=== PATIENT | male | born 1980 | race Caucasian/White ===

== ENCOUNTER 2017-06-24 15:51 | Emergency (ER) | payer MEDICAID ==
[~2017-06-24 15:51] MED LIST: HYDROmorphone 1 MG/ML Syringe ONE; Ondansetron 4 MG/2 ML SDV ONE
[2017-06-24] MEDS ORDERED: Ondansetron 4 MG/2 ML SDV IVPUSH ONE (15:53)
[2017-06-24] MEDS ORDERED: HYDROmorphone 1 MG/ML Syringe IVPUSH ONE ×2 (15:53→16:00)
[2017-06-24] MEDS ORDERED: Diphtheria,Pertussis(Acell),Tetanus Vaccine 0.5 ML SDV IM ONE (15:54)
[2017-06-24] MEDS ORDERED: ceFAZolin 2 GM in Premix Bag 1 BAG IV ONE (15:54)
--- NOTE | 2017-06-24 15:57 | EDM.PDOC ---
ED HPI GENERAL MEDICAL PROBLEM - General Chief Complaint: Laceration Stated Complaint: CUT FINGER Time Seen by Provider: 06/24/17 15:52 Source of Information: Reports: Patient, RN Notes Reviewed History Limitations: Reports: No Limitations - History of Present Illness INITIAL COMMENTS - FREE TEXT/NARRATIVE: 36-year-old gentleman presents emergency department today with a table saw injury to his left hand the injury runs across the palmar surface he has no movement digits 1-3 and 4 he does have movement of his thumb injury just happened prior to presentation tetanus is unknown, no known allergies no significant past medical history, last meal noon Left Hand Pain Score (Numeric/FACES): 5 - Related Data Allergies Allergy/AdvReac Type Severity Reaction Status Date / Time No Known Allergies Allergy Verified 06/24/17 15:56 Home Meds: Home Meds NK [No Known Home Meds] 06/24/17 [History] Past Medical History - Past Health History Medical/Surgical History: Denies Medical/Surgical History Social & Family History - Tobacco Use Smoking Status *Q: Never Smoker ED ROS GENERAL - Review of Systems Review Of Systems: See Below Musculoskeletal: Reports: Hand Pain Skin: Reports: Wound Neurological: Reports: No Symptoms ED EXAM, SKIN/RASH Exam: See Below Text/Narrative:: Examination the left hand he does have a table saw injury that starts around digit #5 runs across the palmar surface digit #1 tendon and bone are exposed bleeding is controlled radial pulse +2 he does have movement of the thumb Exam Limited By: No Limitations General Appearance: Alert, Severe Distress Course - Vital Signs Last Recorded V/S: Last Vital Signs Temp 97.7 F 06/24/17 15:54 Pulse 71 06/24/17 17:13 Resp 16 06/24/17 17:13 BP 123/79 06/24/17 17:13 Pulse Ox 96 06/24/17 17:13 - Orders/Labs/Meds Orders: Active Orders 24 hr Category Date Time Status Vaccines to be Administered [RC] PER UNIT ROUTINE Care 06/24/17 15:54 Ordered Hand 2V Lt [CR] Stat Exams 06/24/17 15:54 Taken Lactated Ringers [Ringers, Lactated] 1,000 ml Med 06/24/17 16:18 Ordered IV BOLUS Medication Orders Lactated Ringer's (Ringers, Lactated) 1,000 mls @ 500 mls/hr IV BOLUS ONE Stop: 06/24/17 18:17 Last Admin: 06/24/17 16:22 Dose: 500 mls/hr Labs: Laboratory Tests 06/24/17 06/24/17 Range/Units 15:30 16:59 WBC 9.8 (4.5-11.0) K/uL RBC 5.66 (4.30-5.90) M/uL Hgb 16.2 H (12.0-15.0) g/dL Hct 47.3 (40.0-54.0) % MCV 84 (80-98) fL MCH 29 (27-31) pg MCHC 34 (32-36) % Plt Count 268 (150-400) K/uL Neut % (Auto) 36 (36-66) % Lymph % (Auto) 50 H (24-44) % [place] % (Auto) 11 H (2-6) % Eos % (Auto) 2 (2-4) % Baso % (Auto) 1 (0-1) % Sodium 143 (140-148) mmol/L Potassium 3.7 (3.6-5.2) mmol/L Chloride 105 (100-108) mmol/L Carbon Dioxide 25 (21-32) mmol/L Anion Gap 12.9 (5.0-14.0) mmol/L BUN 19 H (7-18) mg/dL Creatinine 1.1 (0.8-1.3) mg/dL Est Cr Clr Drug Dosing 97.70 mL/min Estimated GFR (MDRD) > 60 (>60) Glucose 125 H (74-106) mg/dL Calcium 8.4 L (8.5-10.1) mg/dL Meds: Medications Generic Name Dose Route Start Last Admin Trade Name Freq PRN Reason Stop Dose Admin Lactated Ringer's 1,000 mls @ 500 mls/hr 06/24/17 16:18 06/24/17 16:22 Ringers, Lactated IV 06/24/17 18:17 500 mls/hr BOLUS ONE Administration Discontinued Medications Generic Name Dose Route Start Last Admin Trade Name Freq PRN Reason Stop Dose Admin Diphtheria/Tetanus/Acell Pertussis 0.5 ml 06/24/17 15:54 06/24/17 16:08 Adacel IM 06/24/17 15:55 0.5 ml .ONCE ONE Administration Fentanyl 100 mcg 04/20/18 16:13 06/24/17 16:22 Sublimaze IVPUSH 06/24/17 16:14 100 mcg ONETIME ONE Administration Fentanyl 50 mcg 06/24/17 17:02 Sublimaze IVPUSH 06/24/17 17:03 ONETIME ONE Hydromorphone HCl 1 mg 06/24/17 15:53 06/24/17 15:53 Dilaudid IVPUSH 06/24/17 15:54 1 mg ONETIME ONE Administration Hydromorphone HCl 1 mg 06/24/17 16:00 06/24/17 16:07 Dilaudid IVPUSH 06/24/17 16:01 1 mg ONETIME ONE Administration Cefazolin Sodium/Dextrose 2 gm 50 mls @ 100 mls/hr 06/24/17 15:54 06/24/17 16 :07 / Premix IV 06/24/17 16:23 100 mls/hr ONETIME ONE Administration Ondansetron HCl 4 mg 06/24/17 15:53 06/24/17 15:54 Zofran IVPUSH 06/24/17 15:54 4 mg ONETIME ONE Administration Departure - Departure Time of Disposition: 17:20 Disposition: DC/Tfer to Acute Hospital 02 Condition: Fair Clinical Impression: Laceration of left hand involving tendon Qualifiers: Encounter type: initial encounter Qualified Code(s): S61.412A - Laceration without foreign body of left hand, initial encounter; S66.922A - Laceration of unspecified muscle, fascia and tendon at wrist and hand level, left hand, initial encounter - Discharge Information Forms: ED Department Discharge - My Orders Last 24 Hours: My Active Orders 06/24/17 15:54 Vaccines to be Administered [RC] PER UNIT ROUTINE Hand 2V Lt [CR] Stat 06/24/17 16:18 Lactated Ringers [Ringers, Lactated] 1,000 ml IV BOLUS - Assessment/Plan Last 24 Hours: My Active Orders 06/24/17 15:54 Vaccines to be Administered [RC] PER UNIT ROUTINE Hand 2V Lt [CR] Stat 06/24/17 16:18 Lactated Ringers [Ringers, Lactated] 1,000 ml IV BOLUS Plan: Assessment Acuity = acute Site and laterality = tablesaw injury left hand palmar surface blade enters MCP joint digit #5 accident the first phalangeal digit #2 Etiology = trauma with a table saw Manifestations = no movement no sensation digits 2 through 5 Location of injury = Home Lab values = CBC BMP unremarkable x-ray describes the fractures above Plan Initially called [facility], unable to provide care, called [facility] unable to provide care, contacted [facility] spoke with Dr. Raygoza emergency room physician who accepted the patient he will be flown via [facility] to expedite evaluation by the orthopedic hand surgeon, he is been given 1 g Ancef, [address] been given a total of 2 mg Dilaudid 100 g of fentanyl for pain control, tetanus was updated today This note was dictated using [employer] voice recognition software please call with any questions on syntax or yuko.
[2017-06-24] MEDS ORDERED: fentaNYL 100 MCG/2 ML SDV IVPUSH ONE ×2 (16:13→17:02)
[2017-06-24] MEDS ORDERED: Lactated Ringers 1,000 ML IV ONE ×2 (16:18→17:50)
[2017-06-24] MEDS ORDERED: Bupivacaine 0.5% 50 ML MDV ONE (17:47)
--- NOTE | 2017-06-25 04:30 | ANES ---
DATE OF SERVICE: 06/24/2017 NERVE BLOCK NOTE I was called in at a little after 1700 hours to assist and evaluate the patient who has had a significant hand laceration to the left hand and fingers related to hand versus saw. Dr. Jovel was wanting to see if I could come in and evaluate this patient's hand for some sort of nerve blocks, so to better control the pain, Dr. Jovel was worried about giving him too much narcotic and having him stop breathing or at least is worried about his respiratory status and having too much narcotic, he was at the bedside at approximately 1720, was able to evaluate the hand laceration. The patient was visibly uncomfortable, but alert and orientated and brief history and physical were obtained at that time. Dr. Jovel was at the bedside and we discussed the best option for this patient would be to do a median nerve block/wrist block in the left wrist. Discussed this with the family and they wished to proceed with a median nerve block today. I cleaned the wrist off with alcohol, injected around the median nerve approximately 6 mL of 0.5% Sensorcaine. Before I injected that, there was negative aspiration. The patient did not have any significant pain increased with injection. I then moved over to the ulnar nerve side and injected approximately 2 mL of 0.5% Sensorcaine. I aspirated before injection and then I went to identify the radial pulse and went just lateral to that and then injected another 2 mL of 0.5% Marcaine after negative aspiration was done. A total of 10 mL of 0.5% Sensorcaine were injected for the block. The patient was having pretty immediate relief in the hand. Pain level was down from a 6 to about a 3 shortly after the block was done. The patient was seeming to be more comfortable and verbalized that he was having some relief. The patient will be transferred to [facility] via helicopter. Nic Galindo CRNA /[id number]
--- NOTE | 2017-06-27 08:32 | CR ---
Hand 2V Lt HISTORY: Table saw injury FINDINGS: There is a prominent soft tissue laceration ulnar aspect of the hand with involvement of th e fifth MCP joint and fracturing with small displaced fragment space of the fifth proximal phalanx an d head of the fifth metatarsal. Laceration is also seen adjacent to the third and fourth fourth MCP j oints without fracture. There is prominent laceration proximal second digit with fracturing of the ul kaleb aspect head of the proximal phalanx. Small displaced fragments are seen. May also be a laceration distal fourth finger. IMPRESSION: Laceration and fractures about the fifth PIP joint and distal aspect proximal phalanx sec ond finger. There may also be lacerations about the third and fourth MCP joints and distal fourth dig it.
== END 2017-06-24 18:05 ==
LOC: JP.ED 15:51
DX: S61.412A Laceration without foreign body of left hand, initial encounter (principal); W26.8XXA Contact with other sharp object(s), not elsewhere classified, initial encounter
CPT/HCPCS: 36415; 73120; 80048; 85025; 90715; 99285; J0690; J1170; J2405; J3010; J7120

== ENCOUNTER 2018-04-01 11:43 | Emergency (ER) | payer MEDICARE, MEDICAID ==
[2018-04-01] MEDS ORDERED: Acetaminophen/oxyCODONE 325-5 MG Tab PO ONE (12:49)
--- NOTE | 2018-04-01 13:06 | EDM.PDOC ---
ED HPI GENERAL MEDICAL PROBLEM - General Chief Complaint: Gastrointestinal Problem Stated Complaint: SEVERE STOMACH PAINS Time Seen by Provider: 04/01/18 12:47 Source of Information: Reports: Patient, Other (Records from clinic) History Limitations: Reports: No Limitations - History of Present Illness INITIAL COMMENTS - FREE TEXT/NARRATIVE: This gentleman was sent to the ER from clinic. He said last night he ate some chili and then felt tired and so went to bed. He was awakened this morning with real severe abdominal cramps he said the pain was kind of. Umbilical and the pains would come and go they would last about admitting her to be really severe and then completely subside. Between the episodes of pain he would be completely pain free. There's been no nausea or vomiting. This morning he had just a little bit of diarrhea. He denies any fever. At present time he is pain- free. Labs done in clinic were reviewed as well as the CBC shows a mildly elevated white count of 15,000 but there is not much in the way of a left shift and no increased bands. Chemistries are generally normal. Amylase is normal he did have some ketones in his urine but he hasn't had anything to eat since last night. Microscopic was normal. Abdominal flat and upright was read as normal. The x-ray was retrieved on PACS and I see that he does have a small to moderate amount of stool in the anabela ascending colon. Not much stool elsewhere. Lower Abdominal Pain Score (Numeric/FACES): 2 - Related Data Allergies Allergy/AdvReac Type Severity Reaction Status Date / Time No Known Allergies Allergy Verified 04/01/18 11:58 Home Meds: Home Meds NK [No Known Home Meds] 06/24/17 [History] Past Medical History - Past Health History Medical/Surgical History: Denies Medical/Surgical History HEENT History: Reports: Impaired Vision Gastrointestinal History: Reports: None Musculoskeletal History: Reports: None - Infectious Disease History Infectious Disease History: Reports: Chicken Pox - Past Surgical History Head Surgeries/Procedures: Reports: None HEENT Surgical History: Reports: Oral Surgery Other HEENT Surgeries/Procedures: wisdom teeth removed GI Surgical History: Reports: Hernia Repair/Other Musculoskeletal Surgical History: Reports: Other (See Below) Other Musculoskeletal Surgeries/Procedures:: finger surgery Dermatological Surgical History: Reports: None Social & Family History - Tobacco Use Smoking Status *Q: Never Smoker Second Hand Smoke Exposure: No - Caffeine Use Caffeine Use: Reports: Coffee - Recreational Drug Use Recreational Drug Use: No ED ROS GENERAL - Review of Systems Review Of Systems: See Below Constitutional: Reports: No Symptoms HEENT: Reports: No Symptoms Respiratory: Reports: No Symptoms Cardiovascular: Reports: No Symptoms Endocrine: Reports: No Symptoms GI/Abdominal: Reports: Abdominal Pain, Diarrhea. Denies: Nausea, Vomiting : Reports: No Symptoms ED EXAM, GI/ABD - Physical Exam Exam: See Below Exam Limited By: No Limitations General Appearance: Alert, WD/WN Eyes: Bilateral: Normal Appearance Respiratory/Chest: Lungs Clear (allergy listed to his heart) Cardiovascular: Regular Rate, Rhythm GI/Abdominal Exam: Normal Bowel Sounds, Soft, Non-Tender, Other (I could palpate a little bit of stool mass to the right side of abdomen. It was mildly tender.) Back Exam: Normal Inspection Extremities: Normal Inspection Neurological: Alert, Oriented Psychiatric: Normal Affect Skin Exam: Warm, Dry Course - Vital Signs Last Recorded V/S: Last Vital Signs Temp 36.6 C 04/01/18 12:00 Pulse 77 04/01/18 12:00 Resp 16 04/01/18 12:00 BP 112/71 04/01/18 12:00 Pulse Ox 98 04/01/18 12:00 - Orders/Labs/Meds Meds: Medications Discontinued Medications Generic Name Dose Route Start Last Admin Trade Name Eric PRN Reason Stop Dose Admin Oxycodone/Acetaminophen 1 tab 04/01/18 12:49 04/01/18 12:58 Percocet 325-5 Mg PO 04/01/18 12:50 1 tab ONETIME ONE Administration - Re-Assessments/Exams Free Text/Narrative Re-Assessment/Exam: 04/01/18 13:05 Right after examining his abdomen he said that the cramps were suddenly coming back. That lasted a minute or 2 and then they began to subside. I gave him 1 tablet of Percocet 5/325 to help ease the cramping. Plan will be to send him home on some Lomotil to help with cramps put him on a clear liquid diet for 12-24 hours then advance as tolerated. I expect this is going to blow over within the next 24 hours but if he seems to be getting worse he can return to the emergency department. I explained that there was no need to do a CT of the abdomen. Departure - Departure Time of Disposition: 13:09 Disposition: Home, Self-Care 01 Condition: Fair Clinical Impression: Gastroenteritis - Discharge Information Referrals: Michael Kim MD [Primary Care Provider] - Additional Instructions: Most likely your abdominal cramping is due to a stomach virus, something on the order of a stomach flu. You don't have an appendicitis or anything else that needs surgery. Generally these type of infections cause some mild diarrhea and cramping and are usually go within one or 2 days. For the cramps try taking the Lomotil tablets one or 2 tabs 4 times per day. This contains a mild narcotic which slows down the bowels and that will greatly help with cramping. It will also cause a dry mouth. This medication can cause sedation and impaired driving. So use with caution A clear liquid diet for the next 12 or 24 hours is recommended. Then advance to a bland diet and continue advancing the diet as tolerated. If you feel like you're getting worse then return to the emergency department
== END 2018-04-01 13:29 | disposition home or self-care (01) ==
LOC: JP.ED 11:43
DX: K52.9 Noninfective gastroenteritis and colitis, unspecified (principal)
CPT/HCPCS: 99284; A9270; 99283

== ENCOUNTER 2021-04-02 07:37 | Day surgery (SDC) | payer MEDICARE, MEDICAID ==
[~2021-04-02 07:37] MED LIST changes: -HYDROmorphone 1 MG/ML Syringe ONE; +Midazolam 1 MG/ML 2 ML SDV ONE; -Ondansetron 4 MG/2 ML SDV ONE; +Propofol 200 MG/20 ML SDV ONE; +fentaNYL 100 MCG/2 ML SDV ONE
[2021-04-02] MEDS ORDERED: Sodium Chloride 0.9% 1,000 ML IV SCH (08:00)
[2021-04-02] MEDS ORDERED: Propofol 200 MG/20 ML SDV ONE (08:44)
== END 2021-04-02 10:16 | disposition home or self-care (01) ==
LOC: JP.SDS 07:37
PROVIDERS: ATTEND Surgery
DX: K52.9 Noninfective gastroenteritis and colitis, unspecified (principal); K20.90 Esophagitis, unspecified without bleeding; K59.00 Constipation, unspecified
CPT/HCPCS: J2250; J2704; J3010; J7030